=== PATIENT | female | born 1995 | race African-American/Black ===

== ENCOUNTER 2017-12-25 15:01 | Emergency (ER) | payer SELFPAY ==
[~2017-12-25 15:01] MED LIST: Iopamidol 370 76% 100 ML VIAL ONE
[2017-12-25 15:26] LABS: Bilirubin Negative (Negative); Blood, Urine Negative (Negative); Glucose, Urine (Dipstick) Negative (Negative); Leukocyte Moderate (Negative); Nitrite Negative (Negative); Protein, Urine (Dipstick) Negative (Neg-Trace); Urobilinogen 0.2 mg/dL (0.2-1.0); pH, Urine 7.5 (5.0-9.0)
[2017-12-25 15:27] LABS: Clarity Clear (Clear)
[2017-12-25 15:30] LABS: Pregnancy Test - Urine (BHCG) Negative (Negative); Pregu Control Background? CLEAR/WHITE (CLR/WHITE); Pregu Control Bar Appear? YES (CONTROL BAR)
[2017-12-25 15:45] LABS: RBC/HPF None Seen HPF (0-3)
[2017-12-25 15:46] LABS: Bacteria/HPF None Seen HPF (None Seen); Hyaline Casts/LPF NONE SEEN LPF (0-3 Hyaline); Trichomonas/HPF 1+ HPF (None Seen)
[2017-12-25 15:47] LABS: #Basophils 0.1 thou/uL (0.0-0.2); #Lymphocytes 1.4 thou/uL (1.20-3.40); #Monocytes 0.8 thou/uL (0.11-0.59); %Basophils 0.9 % (0.0-1.0); %Eosinophils 0.7 % (0.0-10.0); %Monocytes 10.4 % (0.0-10.0); Hemoglobin 13.4 g/dL (12.0-16.0); Mean Corpuscular HGB CONC 33.2 g/dL (32.0-36.0); Mean Corpuscular Hemoglobin 30.8 pg (27.0-31.0); Mean Corpuscular Volume 92.9 fL (78.0-98.0); Mean Platelet Volume 7.2 fL (7.4-10.4); Platelet Count 268 thou/uL (130-400); RBC Distribution Width 13.2 % (11.5-14.5); Red Blood Cell (RBC) Count 4.35 mill/uL (4.20-5.40); White Blood Cell (WBC) Count 7.2 thou/uL (4.8-10.8)
[2017-12-25 16:07] LABS: ALT (SGPT) 8 U/L (8-55); AST (SGOT) 11 U/L (5-34); Alkaline Phosphatase 48 U/L (40-150); Anion Gap 11 mmol/L (10-20); BUN (Urea Nitrogen) 8 mg/dL (7.0-18.7); Bilirubin, Total 0.2 mg/dL (0.2-1.2); Calc. Creatinine Clearance 0 mL/min (70-130); Calcium 8.9 mg/dL (7.8-10.44); Carbon Dioxide 21 mmol/L (22-29); Chloride 107 mmol/L (98-107); Estimated GFR-MDRD Greater than 90; Globulin 2.5 g/dL (2.4-3.5); Glucose 90 mg/dL (70-105); Potassium 3.6 mmol/L (3.5-5.1); Protein, Total 6.5 g/dL (6.0-8.3); Sodium 135 mmol/L (136-145)
--- NOTE | 2017-12-25 16:52 | ULT ---
PELVIC ULTRASOUND: HISTORY: Suprapubic and right-sided pain. TECHNIQUE: Multiple longitudinal and transverse images of the pelvis were obtained using a Multi-Hertz curviline ar transducer. Real-time and color-flow images were obtained. FINDINGS: Images demonstrate the uterus to be of normal contour, axis, and size, measuring 7.8 x 3.8 x 4.4 cm. The endometrium is of normal thickness, measuring 13 mm. There is no definite evidence of free pelvic fluid. The right and left ovary is not visualized. Normal uterine ultrasound. The patient refused endovaginal sonography. The right and left ovaries were not visualized by transa bdominal sonography. Ovarian pathology cannot be excluded. POS: [facility]
[2017-12-25] MEDS ORDERED: Lidocaine 1% (PF) 30 ML VIAL ONE (17:55)
[2017-12-25] MEDS ORDERED: cefTRIAXone\\ROCEPHIN 250 MG VIAL ONE (17:55)
[2017-12-25] MEDS ORDERED: Azithromycin 250 MG TAB ONE (17:55)
--- NOTE | 2017-12-25 17:55 | CT ---
CT ABDOMEN AND PELVIS WITH CONTRAST: 12/25/2017 HISTORY: A 22-year-old who presents with a history of abdominal pain. TECHNIQUE: IV contrast was given. Unfortunately, oral contrast was not given. This does decrease the sensitivi ty for detection of pathology. FINDINGS: The lung bases are unremarkable. No evidence of free intraperitoneal air is seen. The liver and spleen are unremarkable. The gallbladder is unremarkable. The pancreas is unremarkabl e. The adrenal glands and kidneys are unremarkable. No evidence of bowel obstruction is seen. The appendix is thought to be possibly visible on the coronal reconstructed images; however, this is not definitively seen on the axial images. The colon demonstrates no significant evidence of enhancement or obstruction. A moderate amount of free pelvic fluid is seen. The urinary bladder is thickened. This may represent changes of cystitis. Correlate with clinical e xam. There appears to be a left ovarian cyst. IMPRESSION: 1. Small amount of free pelvic fluid. 2. Thickened urinary bladder. POS: [facility]
== END 2017-12-25 18:39 | disposition home or self-care (01) ==
LOC: ERS 15:01
DX: A59.9 Trichomoniasis, unspecified (principal); F31.9 Bipolar disorder, unspecified; F41.9 Anxiety disorder, unspecified; F17.210 Nicotine dependence, cigarettes, uncomplicated
CPT/HCPCS: 36415; 74177; 76856; 80053; 81003; 81015; 81025; 85025; 96372; J0696; J2001

== ENCOUNTER 2019-05-25 17:12 | Emergency (ER) | payer SELFPAY ==
--- NOTE | 2019-05-25 18:05 | ULT ---
LEFT LOWER EXTREMITY VENOUS DUPLEX EXAM: 05/25/19 HISTORY: Left leg pain and swelling. Real time color Doppler evaluation of the left lower extremity was performed from groin to calf. This includes evaluation of common femoral, superficial and profunda femoral, saphenous, popliteal and po sterior tibial veins. This shows evidence of a DVT with nonocclusive thrombus within the popliteal ve in, both proximally and more in the distal portion. Flow is seen in the posterior tibial vein. IMPRESSION: Evidence of a DVT with thrombus within the popliteal vein. POS: [facility]
== END 2019-05-25 18:37 | disposition home or self-care (01) ==
LOC: ERS 17:12
DX: I82.432 Acute embolism and thrombosis of left popliteal vein (principal); F41.9 Anxiety disorder, unspecified; F31.9 Bipolar disorder, unspecified; F17.210 Nicotine dependence, cigarettes, uncomplicated

== ENCOUNTER 2020-04-18 14:03 | Outpatient (CLI) | payer MEDICAID ==
--- NOTE | 2020-04-18 17:27 | ULT ---
TRANSABDOMINAL AND TRANSVAGINAL PELVIC ULTRASOUND: 04/18/20 INDICATION: History of heavy cycles and pelvic pain. TECHNIQUE: Cuenca scale, color Doppler with spectral Doppler images were obtained of the pelvis via transabdominal and transvaginal approach. FINDINGS: The exam is compared with prior CT of the abdomen and pelvis dated 12/25/17 and a pelvic ultrasound da charli 12/25/17. FINDINGS: The uterus has a normal sonographic appearance measuring 6.7 x 4.5 x 3.4 cm and given estimated total uterine volume of 54.3 mL. Endometrial stripe measured 7 mm which is within normal limits for a zoila enopausal female. No free fluid is evident. The right ovary measures 3.2 x 1.8 x 2.1 cm. Left ovary measures 3.4 x 2.2 x 2.1 cm. There is normal flow to both ovaries. IMPRESSION: No acute sonographic abnormality. POS: [facility]
== END 2020-04-18 14:04 | disposition home or self-care (01) ==
LOC: BICULT 14:03
PROVIDERS: ATTEND Nurse Practitioner Family
DX: N92.1 Excessive and frequent menstruation with irregular cycle (principal)
CPT/HCPCS: 76856

== ENCOUNTER 2020-06-09 17:40 | Emergency (ER) | payer MEDICAID | END 2020-06-09 17:50 | disposition left against medical advice (07) | LOC: ERS 17:40 | DX: Z53.21 Procedure and treatment not carried out due to patient leaving prior to being seen by health care provider (principal) ==

== ENCOUNTER 2020-06-10 08:22 | Emergency (ER) | payer MEDICAID | END 2020-06-10 10:58 | disposition home or self-care (01) | LOC: ERS 08:22 | DX: I82.442 Acute embolism and thrombosis of left tibial vein (principal); I82.432 Acute embolism and thrombosis of left popliteal vein; F17.210 Nicotine dependence, cigarettes, uncomplicated; Z86.73 Personal history of transient ischemic attack (TIA), and cerebral infarction without residual deficits ==

== ENCOUNTER 2021-03-17 21:55 | Emergency (ER) | payer MEDICAID ==
[2021-03-17 22:48] LABS: #Basophils 0.1 thou/uL (0.0-0.2); #Eosinphils 0.1 thou/uL (0.0-0.7); #Monocytes 0.4 thou/uL (0.11-0.59); #Neutrophils 2.1 thou/uL (1.40-6.50); %Basophils 2.1 % (0.0-1.0); %Lymphocytes 27.8 % (21.0-51.0); %Monocytes 9.8 % (0.0-10.0); %Neutrophils 58.4 % (42.0-75.0); Hemoglobin 11.6 g/dL (12.0-16.0); Mean Corpuscular Hemoglobin 23.8 pg (27.0-31.0); Mean Corpuscular Volume 76.7 fL (78.0-98.0); Mean Platelet Volume 8.1 fL (7.4-10.4); Platelet Count 321 thou/uL (130-400); RBC Distribution Width 17.2 % (11.5-14.5); White Blood Cell (WBC) Count 3.6 thou/uL (4.8-10.8)
[2021-03-17 23:09] LABS: ALT (SGPT) 83 U/L (8-55); AST (SGOT) 50 U/L (5-34); Alkaline Phosphatase 75 U/L (40-110); Anion Gap 17 mmol/L (10-20); BUN (Urea Nitrogen) 11 mg/dL (7.0-18.7); Bilirubin, Total 0.4 mg/dL (0.2-1.2); Calc. Creatinine Clearance 0 mL/min (70-130); Calcium 9.4 mg/dL (7.8-10.44); Carbon Dioxide 19 mmol/L (22-29); Chloride 101 mmol/L (98-107); Globulin 3.3 g/dL (2.4-3.5); Glucose 71 mg/dL (70-105); Lipase 7 U/L (8-78); Potassium 4.1 mmol/L (3.5-5.1); Protein, Total 7.3 g/dL (6.0-8.3); Sodium 133 mmol/L (136-145)
[2021-03-18] MEDS ORDERED: Morphine 4 MG/ML VIAL ONE (00:08)
[2021-03-18 01:39] LABS: Bacteria/HPF None Seen HPF (None Seen); Bilirubin Negative (Negative); Blood, Urine 2+ (Negative); Clarity Clear (Clear); Glucose, Urine (Dipstick) Normal (Negative); Ketone, Urine Greater than 150 mg/dL (Negative); Leukocyte Negative Leu/uL (Negative); Nitrite Negative (Negative); Protein, Urine (Dipstick) 20 mg/dL (Neg-Trace); RBC/HPF 0-3 HPF (0-3); WBC/HPF 0-3 HPF (0-3); pH, Urine 5.5 (5.0-9.0)
[2021-03-18 01:40] LABS: Pregnancy Test - Urine (BHCG) Negative (Negative); Pregu Control Background? CLEAR/WHITE (CLR/WHITE); Pregu Control Bar Appear? YES (CONTROL BAR)
[2021-03-18 19:09] LABS: SARS-CoV-2 PCR by NAA Not Detected (NotDetected)
== END 2021-03-18 03:18 | disposition home or self-care (01) ==
LOC: ERS 21:55
DX: R10.33 Periumbilical pain (principal); R74.01 Elevation of levels of liver transaminase levels; D64.9 Anemia, unspecified; F17.210 Nicotine dependence, cigarettes, uncomplicated; Z20.822 Contact with and (suspected) exposure to COVID-19
CPT/HCPCS: 74177; 80053; 81003; 81015; 81025; 83690; 85025; 96374; J2270; U0003; U0005